=== PATIENT | male | born 1945 | race Caucasian/White ===

== ENCOUNTER 2020-01-21 14:02 | Inpatient (IN) | payer OTHER ==
[~2020-01-21] VITALS: Ht 167.6 cm; Wt 82.6 kg
[2020-01-21] MEDS ORDERED: OXYCODONE HCL30 MG PO (14:29)
[2020-01-21] MEDS ORDERED: DILTIAZEM ER120 M3 PO (14:29)
--- NOTE | 2020-01-21 14:29 | NUR ---
PACIENTE LLEGA ALERTA Y ORIENTADO EN LEE ELY ESFERAS, LLEGA CON NON REBREATHING SATURANDO 100%, CONECTADO A MONITOR CARDIACO PRESENTANDO BLOQUEO DE RASHEED DERECHA, CANALIZADO EN INOCENCIA LT NO PATENTE. HIJA REFIERE QUE A LAS 2:00 AM LO ENCONTRO HIPOACTIVO, REFIERE "CREO QUE SE DEBA A SHALOM SOBREDOSIS DE JINA DE LOS MEDICAMENTOS QUE YVONNE". PACIENTE YVONNE DIALTIZEM, OXYCODONE Y XANAX. SE CONECTA PACIENTE A MONITOR CARDIACO PRESENTANDO PULSO EN 50 LAT/MIN, SPO2 94% EN AMBIENTE, SE REALIZA EKG Y SE LE ENTREGA A DRA ARROYO PARA PEDRAZA INTERPRETACION. MS Y BONILLA CANALIZA NUEVA VENA EN CUBITAL BRAZO LT Y RETIRA VENOPUNCION NO PATENTE EN INOCENCIA.
--- NOTE | 2020-01-21 14:38 | NUR ---
MS Y BONILLA COLECTA MUESTRAS DE LABORATORIO ORDENADAS. ABG COLECTADOS POR POR MS VÁZQUEZ.
--- NOTE | 2020-01-21 15:06 | NUR ---
PACIENTE ALERTA Y ORIENTADO EN LAS ELY ESFERAS, EN AREA DE CHEST PAIN EN COMPANIA DE FAMILIAR. CONECTADO A MONITOR CARDIACO Y OXIMETRIA DE PULSO. PACIENTE EN ESPERA DE RESULTADOS DE LABORATORIO Y PLACA DE PECHO. SE ORIENTA PACIENTE Y FAMILIAR SOBRE PROCESOS Y A NOTIFICAR CUALQUIER CAMBIO, PACIENTE SE MANTIENE BAJO OBSERVACION CONTINUA CON BARANDAS ELEVADAS Y TIMBRE ACCESIBLE.
--- NOTE | 2020-01-21 15:57 | NUR ---
SE ORIENTA AL PACIENTE Y AL FAMILIAR SOBRE EL PROCEDIMIENTO Y SE INSERTA CRABTREE CATETER BAJO MEDIDAS ESTERILES DRENANDO 300ML DE UA AMARILLO INTENSO. SE COLECTAN MUESTRAS PARA UA UC Y UA TOXICOLOGY ROTULADAS Y ENVIADAS AL LABORATORIO. PTE CONSULTADO CON MEDICINA INTERNA.
[2020-01-24] MEDS ORDERED: RESTORIL30 MG PO (09:44)
[2020-01-24] MEDS ORDERED: ALPRAZOLAM0.25 MG PO (09:45)
[2020-01-24] MEDS ORDERED: HYDRALAZINE HCL25 MG PO (09:46)
[2020-01-24] MEDS ORDERED: DILTIAZEM 24HR240 MG PO (09:46)
[2020-01-24] MEDS ORDERED: SIMVASTATIN20 MG PO (09:46)
[2020-01-24] MEDS ORDERED: FEOSOL325 MG PO (09:47)
[2020-01-24] MEDS ORDERED: GABAPENTIN800 M1 PO (09:47)
[2020-01-24] MEDS ORDERED: ADULT LOW DOSE81 M1 PO (09:47)
[2020-01-24] MEDS ORDERED: PANTOPRAZOLE SO40 MG PO (09:47)
[2020-01-24] MEDS ORDERED: VALSARTAN-HCTZ1 EAC4 PO (09:47)
[2020-01-24] MEDS ORDERED: FOLIC ACID1 MG PO (09:48)
[2020-01-27] MEDS ORDERED: PANTOPRAZOLE SO40 MG PO (14:09)
[2020-01-27] MEDS ORDERED: RESTORIL15 MG PO (14:09)
[2020-01-27] MEDS ORDERED: AMLODIPINE BESYL5 MG PO (14:09)
[2020-01-27] MEDS ORDERED: AVAPRO150 MG PO (14:09)
[2020-01-27] MEDS ORDERED: CARdura 4MG TABLET PO (14:09)
[2020-01-27] MEDS ORDERED: GABAPENTIN100 MG PO (14:09)
[2020-01-27] MEDS ORDERED: ASA-EC81 MG PO (14:09)
[2020-01-27] MEDS ORDERED: Lipitor 10MG TABLET PO (14:09)
== END 2020-01-27 19:51 | disposition home or self-care (01) | DRG 683 ==
LOC: ER 14:02 → SURH 17:35
PROVIDERS: ADMIT Internal Medicine
PROC: 4A033R1 Measurement of Arterial Saturation, Peripheral, Percutaneous Approach (ICD-10-PCS; principal; 2020-01-21)
PROC: 4A12X4Z Monitoring of Cardiac Electrical Activity, External Approach (ICD-10-PCS; 2020-01-21)
PROC: 0T9B70Z Drainage of Bladder with Drainage Device, Via Natural or Artificial Opening (ICD-10-PCS; 2020-01-21)
DX: N17.8 Other acute kidney failure (principal); M62.82 Rhabdomyolysis; T40.2X1A Poisoning by other opioids, accidental (unintentional), initial encounter; I12.9 Hypertensive chronic kidney disease with stage 1 through stage 4 chronic kidney disease, or unspecified chronic kidney disease; N18.3 Chronic kidney disease, stage 3 (moderate); E87.5 Hyperkalemia; R09.02 Hypoxemia; G89.29 Other chronic pain; M54.5 Low back pain; R31.29 Other microscopic hematuria

== ENCOUNTER 2023-10-23 00:41 | Emergency (ER) | payer OTHER ==
[~2023-10-23] VITALS: Ht 172.7 cm; Wt 94.3 kg
[~2023-10-23 00:41] MED LIST: ADULT LOW DOSE81 M1 PO; ALPRAZOLAM0.25 MG PO; AMLODIPINE BESYL5 MG PO; ASA-EC81 MG PO; AVAPRO150 MG PO; CARdura 4MG TABLET PO; DILTIAZEM 24HR240 MG PO; DILTIAZEM ER120 M3 PO; FEOSOL325 MG PO; FOLIC ACID1 MG PO; GABAPENTIN100 MG PO; GABAPENTIN800 M1 PO; HYDRALAZINE HCL25 MG PO; Lipitor 10MG TABLET PO; OXYCODONE HCL30 MG PO; PANTOPRAZOLE SO40 MG PO; RESTORIL15 MG PO; RESTORIL30 MG PO; SIMVASTATIN20 MG PO; VALSARTAN-HCTZ1 EAC4 PO
[2023-10-23] MEDS ORDERED: LIPITOR20 MG (00:55)
[2023-10-23] MEDS ORDERED: NEURONTIN300 MG (00:56)
[2023-10-23] MEDS ORDERED: NEURONTIN600 M1 (00:56)
[2023-10-23] MEDS ORDERED: TRAZODONE HCL150 MG (00:57)
[2023-10-23] MEDS ORDERED: ERLEADA240 MG (00:57)
[2023-10-23 04:06] LABS: HEMATOCRIT 33.6 % (39.0-48.0); HEMOGLOBIN 11.6 g/dL (13-16.00); MEAN CELL VOLUME 92.1 fL (80.0-100.00); MEAN CORPUSCULAR HEMOGLOBIN 31.8 pg (27.00-32.0); MEAN CORPUSCULAR HGB CONC 34.5 g/dl (32.0-36.0); PLATELET COUNT 148 K/uL (150-450); RED BLOOD COUNT 3.65 M/uL (4.00-6.00); RED CELL DISTRIBUTION WIDTH 13.7 % (11.5-14.5)
[2023-10-23 04:26] LABS: INR < 0.93; PARTIAL THROMBOPLASTIN TIME 23.8 SECONDS (22.0-34.0); PROTHROMBIN TIME 9.8 SECONDS (9.0-11.5)
[2023-10-23 04:27] LABS: BILIRUBIN TOTAL 0.39 mg/dL (0.3-1.2); CALCIUM 9.2 mg/dL (8.5-10.1); CREATININE SERUM 1.85 mg/dL (0.70-1.30); GFR 35.35; GLOBULINA 3.8 G/DL (2.4-3.5); POTASSIUM 4.17 mEq/L (3.5-5.1); TOTAL PROTEIN 7.8 gm/dL (6.4-8.2)
== END 2023-10-23 06:28 | disposition home or self-care (01) ==
LOC: ER 00:42
DX: H81.10 Benign paroxysmal vertigo, unspecified ear (principal)